=== PATIENT | female | born 1945 | race Caucasian/White ===

== ENCOUNTER 2024-10-30 15:01 | Emergency (ER) | payer MEDICARE, BC, SELFPAY ==
--- NOTE | 2024-10-30 16:16 | EDRN ---
Pt states she arrives for pain shooting down arms, burning and shooting and pain also goes from shoulder to shoulder across upper back. Pain started a month ago and saw PCP and went on prednisone for 12 days and other med. Pt states pain went away
then it came back, put her back on these meds and pain went away and came back even worse. Pain at this time is 10/10. Pt has been unable to sleep at night for about 5 nights. Pain gets worse when lies on her shoulders. Pain goes from shoulder to
shoulder, first one is worse then the other.
[2024-10-30 16:19] VITALS: BMI 28.8
--- NOTE | 2024-10-30 16:26 | EDRN ---
Pt has decreased ROM of bilateral arms and has difficulty w/ great increase in pain w/ pulling up her pants, pushing arms back and putting on a coat, short or jacket.
--- NOTE | 2024-10-30 16:49 | EDRN ---
Dr. Perez in room w/pt at this time.
[2024-10-30] MEDS: TORADOL 15 MG IV ×2 (17:21→19:36)
[2024-10-30 17:22] VITALS: BP 163/74
[2024-10-30 17:31] LABS: % Basophils 0.5 % (0-2); % Eosinophils 5.1 % (0-6); % Immature Granulocytes 0.5 % (0-0.5); % Lymphocytes 19.1 % (20.5-51.1); % Monocytes 7.4 % (1.7-9.3); % Neutrophils 67.4 % (42.2-75.2); Absolute Eosinophils 0.4 10^3/uL (0-0.7); Absolute Lymphocytes 1.6 10^3/uL (1.2-3.4); Absolute Monocytes 0.6 10^3/uL (0.1-0.6); Absolute Neutrophils 5.6 10^3/uL (1.4-6.5); Hematocrit 39.9 % (37.0-47.0); Hemoglobin 12.9 g/dL (12.0-16.0); Mean Corp Hgb Conc. 32.3 g/dL (33.0-37.0); Mean Corpuscular Hgb 28.7 pg (27.0-31.0); Mean Corpuscular Volume 88.7 fL (81.0-99.0); Mean Platelet Volume 9.3 fL (7.4-10.4); Nucleated Red Blood Cells % 0 %; Platelet Count 282 10^3/uL (130-400); Red Cell Dist. Width 14.5 % (11.5-14.5); White Blood Cell Count 8.4 10^3/uL (4.8-10.8)
--- NOTE | 2024-10-30 17:47 | ED.GENMED ---
History of Present Illness
General
Chief Complaint: Extremity Pain (non-traumatic)
Source: patient and family (2 daughters at bedside)
Exam Limitations: none
Time Seen by Provider: 10/30/24 16:45
Nursing documentation reviewed up to this point in time: agreed with
History of Present Illness
History of Present Illness:
This is a quite villatoro 79-year-old woman who has history of hypertension, hyperlipidemia, cervical and lumbar DJD, remote history of gastric ulcer. She complains of 1 month history of bilateral upper arm/bilateral shoulder pain without insightful
injury, no falls. She admits that upper arm and shoulder pain is much worse with movement of her shoulders, she is unable to lift her arms completely overhead and unable to reach behind her back. She does note mild neck pain that has been chronic
and unchanged and states she underwent an MRI of her cervical spine this past summer that showed some DJD. She did not require interventions. She denies increase in her neck pain, she denies weakness or numbness. No headache.
She denies insightful injury but she does admit to staying quite active and was quite busy over the holidays, baking, doing various other activities.
She saw her PCP 1 month ago and was placed on a Medrol Dosepak with marked improvement/resolution of pain until Medrol Dosepak completed then bilateral shoulder pain returns. She was placed on another lengthier taper of prednisone which completed a
little over 1 week ago. She admits that pain improved with the Medrol but has since returned and is now worsening. She has not had a fever nor chills, no rash. No history of similar episodes of pain. She denies back pain nor hip pain. She does
note occasional aching of pain across her upper shoulders. More so with movement.
Past History
Past History
ED Past Medical History: GERD (History of bleeding peptic ulcer), HTN, Hypercholesterolemia and Other (Cervical and lumbar DJD/lumbar spinal stenosis); Negative CAD
ED Past Surgical History: Cardiac (Cardiac catheterization 2016), Cholecystectomy, Gynecological (D and C) and Orthopedic (Lumbar laminectomy July 2018)
Social History
Tobacco: Non-smoker
Alcohol: None
Drug: None
Personal:
Living: with family
Employment: Retired
Family History
Family History: Other (Noncontributory)
Phy Exam
Physical Exam
Physical Exam:
GENERAL: 79-year-old woman appears somewhat younger than stated age, bright and alert, pleasant, appears in no acute distress. 2 daughters accompanying.
EYE: anicteric
NECK: Supple, nontender, Full range of motion without difficulty nor pain. no meningismus, no significant adenopathy.
ENT: oral mucosa is moist. No rhinorrhea.
CARDIAC: Regular rate and rhythm. no murmur.
LUNGS: Clear breath sounds bilaterally, no acute respiratory distress, no wheezes/rales/rhonchi
ABDOMEN: Soft, nondistended, without focal tenderness
NEUROLOGICAL: Alert and oriented x3, no focal neuro deficits. Gait is steady.
SKIN: Warm and dry, normal color, skin intact. No rash.
MUSCULOSKELETAL: No C/C/E. peripheral pulses are full and equal b/l. Mild tenderness palpation about bilateral shoulders without soft tissue swelling nor crepitus. Mild tenderness proximal humerus bilaterally. There is mildly restricted range of
motion bilateral shoulders related to pain.
PSYCH: Normal and appropriate interaction.
Course
Orders/Labs/Results
Orders:
Orders
10/30/24 16:58
Electrocardiogram (*1) Urgent
Reason for Study: Chest Pain
EKG- Treatment ONCE
Shoulder, Left, Trauma CR [CR Shoulder, Trauma - Left] Urgent
Comment:
Reason For Exam: b/l shoulder pain x 1 month
Shoulder, Right, Trauma [CR Shoulder, Trauma - Right] Urgent
Comment:
Reason For Exam: b/l shoulder pain x 1 month
10/30/24 17:00
Ketorolac [Toradol] 15 mg IV NOW STA
10/30/24 17:17
CRP [C-Reactive Protein] Urgent
Complete Blood Count/With Diff Urgent
Comprehensive Metabolic Panel Urgent
Lyme Progressive Urgent
Rheumatoid Factor [Rheumatoid Agglutinin] Urgent
Sed Rate [Erythrocyte Sed Rate] Urgent
10/30/24 19:26
Dexamethasone Sod Phosphate [Decadron] 10 mg IV NOW STA
Ketorolac [Toradol] 15 mg IV NOW STA
Abnormal Lab Results
10/30/24
17:17
MCHC 32.3 L g/dL
(33.0-37.0)
Lymphocytes % 19.1 L %
(20.5-51.1)
ESR 44 H mm/hour
(0-20)
Creatinine 0.5 L mg/dL
(0.6-1.0)
C-Reactive Protein 35.70 H mg/L
(0.0-10.00)
10/30/24 17:17
10/30/24 17:17
Vital Signs
Initial and Last Documented VS:
Initial Vital Signs
Temp Pulse Resp Pulse Ox
98.3 F 77 18 95
10/30/24 15:03 10/30/24 15:03 10/30/24 15:03 10/30/24 15:03
Last Documented Vital Signs
Temp Pulse Resp BP Pulse Ox
98.0 F 74 20 138/65 94
10/30/24 19:09 10/30/24 19:09 10/30/24 19:09 10/30/24 19:09 10/30/24 19:09
MDM/Problems Addressed
Differential Diagnosis Includes:
Concern for polymyalgia rheumatica, DJD bilateral shoulders, concern for other inflammatory arthropathy, other consideration is cervical radiculopathy. Less likely ACS.
Will check EKG, will check labs including inflammatory markers, Lyme titer, rheumatoid factor.
Will check x-ray bilateral shoulders.
Will trial an IV dose of Toradol.
*Radiology
Radiology exam reviewed: preliminary read by ED provider (Bilateral shoulder x-rays unremarkable showing mild osteopenia but otherwise unremarkable.)
*Pulse Oximetry
Patient hypoxic: no
*EKG
Interpreted by ED Provider?: Yes
Interpretation: normal
Comparison EKG: no comparison EKG present
Rate: normal
Rhythm: sinus
Bastian: normal axis
Interval: first degree heart block
QRS Pattern: normal QRS
Ischemia: no ischemia
*Critical Care Note
Total Time (30-74mins, 75-104mins- exclusive of procedures): Not Applicable
Update Note
Update Note:
19:25
Patient reports only minimal relief after small IV dose of Toradol. She continues with primarily bilateral upper arm pain more so right than left, worse with movement of her shoulders, worse with palpation of her lateral shoulders.
Labs are remarkable for mildly elevated sed rate of 44, elevated CRP of 35.7. All other labs within normal limits. Lyme titer, rheumatoid factor pending.
Bilateral shoulder x-rays are unremarkable. Mild osteopenia but otherwise unremarkable.
I suspect inflammatory arthropathy such as polymyalgia rheumatica. As patient had relief with oral steroids will prescribe a lengthier taper of prednisone and recommend she follow-up with classifier tender for further evaluation.
Will add Protonix for GI protection. Remote history of bleeding gastric ulcer.
Will give an additional small dose of Toradol now as well as an IV dose of Decadron.
ED Attending Note
-
Portions of this chart may have been created with voice recognition software.� Occasional wrong word or��sound alike� substitutions may have occurred due to the inherent limitations of voice recognition software.
Discharge Plan
Departure
Patient Disposition: Home (Routine Discharge)
Date of Disposition: 10/30/24
Time of Disposition: 19:29
Patient with high blood pressure during this ER visit?: No
Condition: Good
Discharge Problem:
Shoulder arthralgia, Concern for polymyalgia rheumatica
Instructions: Shoulder Tendinopathy (DC), Rotator Cuff Tendinitis Stretching Exercises
Prescriptions:
New
prednisone 10 mg Tablet
See Rx Instructions .ROUTE .COMPLEX Qty: 45 0RF
Rx Instructions:
Take By Mouth:
50 mg daily x3 days, 40 mg daily x3 days,
30 mg daily x3 days, 20 mg daily x3 days,
10 mg daily x3 days
pantoprazole [Protonix] 40 mg tablet,delayed release (DR/EC)
40 mg PO DAILY Qty: 30 0RF
No Action
amlodipine 10 MG tablet
10 mg PO HS
metoprolol tartrate 50 MG tablet
50 mg PO DAILY
gabapentin 300 MG capsule
300 mg PO HS
rosuvastatin 5 MG tablet
2.5 mg PO DAILY
Systane Balance 10 ML drops
1 drp BOTH EYES TID
Losartan
100 mg PO HS
tramadol 50 MG tablet
50 mg PO Q6HPRN PRN (Reason: pain) Qty: 40 0RF
lorazepam 1 MG tablet
1 mg PO TIDPRN PRN (Reason: pain/spasms) Qty: 40 0RF
aspirin [Aspir-81] 81 mg Tablet,Delayed Release (Dr/Ec)
81 mg PO DAILY
Referrals:
Luis Shah DO [Consulting Staff] - Call in 1-3 days for appt
UNKNOWN - PT NOT,INTERVIEWE [Unknown Provider] -
Interventions
Interventions:
*Risk Screen - Suicide Last Done: 10/30/24 16:21
*General Assessment Last Done: 10/30/24 16:20
*Neglect/Abuse Screening Last Done: 10/30/24 16:21
ED- Fall Risk Assessment Last Done: 10/30/24 16:21
*ED COVID-19 Vaccine History Last Done: 10/30/24 16:20
ED-Musculoskeletal Assessment Last Done: 10/30/24 16:24
ED-Peripheral Vascular Assessment Last Done: 10/30/24 16:24
ED-Skin Assessment Last Done: 10/30/24 16:24
Discharge Date and Time
Print Language: TURKISH
[2024-10-30 17:51] LABS: Erythrocyte Sed Rate 44 mm/hour (0-20)
[2024-10-30 17:54] LABS: ALT (SGPT) 16 U/L (0-35); AST (SGOT) 25 U/L (14-36); Albumin 4.5 g/dl (3.5-5.0); Alkaline Phosphatase 79 U/L (38-126); Blood Urea Nitrogen 13 mg/dl (7-17); Calcium 8.9 mg/dl (8.4-10.2); Carbon Dioxide 26 mmol/L (22-30); Chloride 102 mmol/L (98-107); Estimated Creatinine Clearance 64 ml/min; Glucose 72 mg/dl (70-99); Potassium 4.3 mmol/L (3.5-5.1); Sodium 139 mmol/L (135-145); Total Bilirubin 0.6 mg/dl (0.2-1.3); Total Protein 7.2 g/dl (6.3-8.2); eGFR > 60.00
[2024-10-30 18:20] VITALS: BP 114/76
[2024-10-30 19:09] VITALS: BP 138/65
[2024-10-30] MEDS: DECADRON 10 MG IV (19:37)
[2024-10-31 13:44] LABS: Lyme Antibody Screen, EIA Negative (Negative); Rheumatoid Agglutinin Positive (<10 IU)
[2024-10-31 15:08] LABS: Rheumatoid Agg. Semi-quant 256 IU
== END 2024-10-30 19:55 | disposition home or self-care (01) ==
LOC: EMR 15:01
PROVIDERS: EMERGENCY PHYSICIAN Emergency Medicine; FAMILY PHYSICIAN Internal Medicine
DX: M25.519 Pain in unspecified shoulder (principal); I10 Essential (primary) hypertension; E78.00 Pure hypercholesterolemia, unspecified; K21.9 Gastro-esophageal reflux disease without esophagitis; Z87.11 Personal history of peptic ulcer disease; Z90.49 Acquired absence of other specified parts of digestive tract
CPT/HCPCS: 99283; 96374; 96375; 96376; 73030; 80053; 85025; 85652; 86140; 86430; 86431; 86618; 93005

== ENCOUNTER 2024-11-01 21:16 | Emergency (ER) | payer MEDICARE, BC, SELFPAY ==
[2024-11-01 21:16] VITALS: BP 155/83
[2024-11-01 21:18] VITALS: BP 179/79
[2024-11-01 21:39] LABS: % Basophils 0.1 % (0-2); % Immature Granulocytes 0.4 % (0-0.5); % Lymphocytes 10.6 % (20.5-51.1); % Neutrophils 84.9 % (42.2-75.2); Absolute Immature Granulocytes 0.1 10^3/uL (0-0.05); Absolute Lymphocytes 1.2 10^3/uL (1.2-3.4); Absolute Monocytes 0.5 10^3/uL (0.1-0.6); Absolute Neutrophils 9.5 10^3/uL (1.4-6.5); Hematocrit 37.1 % (37.0-47.0); Hemoglobin 11.9 g/dL (12.0-16.0); Mean Corp Hgb Conc. 32.1 g/dL (33.0-37.0); Mean Corpuscular Hgb 29.2 pg (27.0-31.0); Mean Corpuscular Volume 91.2 fL (81.0-99.0); Mean Platelet Volume 9.4 fL (7.4-10.4); Nucleated Red Blood Cells % 0 %; Platelet Count 383 10^3/uL (130-400); Red Blood Cell Count 4.07 10^6/uL (4.20-5.40); Red Cell Dist. Width 14.6 % (11.5-14.5); White Blood Cell Count 11.2 10^3/uL (4.8-10.8)
[2024-11-01 21:56] LABS: ALT (SGPT) 17 U/L (0-35); AST (SGOT) 21 U/L (14-36); Albumin 4.4 g/dl (3.5-5.0); Alkaline Phosphatase 75 U/L (38-126); Blood Urea Nitrogen 25 mg/dl (7-17); Calcium 9.2 mg/dl (8.4-10.2); Carbon Dioxide 28 mmol/L (22-30); Chloride 101 mmol/L (98-107); Glucose 131 mg/dl (70-99); Potassium 3.9 mmol/L (3.5-5.1); Sodium 139 mmol/L (135-145); Total Bilirubin 0.5 mg/dl (0.2-1.3); eGFR > 60.00
[2024-11-01 22:01] VITALS: BP 141/67; BMI 32.7
[2024-11-01 23:00] VITALS: BP 145/70
--- NOTE | 2024-11-01 23:02 | ED.GENMED ---
History of Present Illness
General
Chief Complaint: Nose Bleed
Source: patient, family and ambulance crew
Time Seen by Provider: 11/01/24 21:36
History of Present Illness
History of Present Illness:
Pleasant 79-year-old female who presents with left nostril nosebleed that began around 730 this evening. Denies trauma. Reports no other complaints. She states that this is spontaneous and is not on any blood thinners. She tried putting direct
pressure on it. She called 911. Ambulance arrived and put a clamp on her nose. That stopped the bleeding on arrival bleeding had stopped completely.
Past History
Past History
ED Past Medical History: GERD (History of bleeding peptic ulcer), HTN, Hypercholesterolemia and Other (Cervical and lumbar DJD/lumbar spinal stenosis); Negative CAD
ED Past Surgical History: Cardiac (Cardiac catheterization 2016), Cholecystectomy, Gynecological (D and C) and Orthopedic (Lumbar laminectomy July 2018)
Social History
Tobacco: Non-smoker
Alcohol: None
Drug: None
Personal:
Living: with family
Employment: Retired
Family History
Family History: Other (Noncontributory)
Review of Systems
Review of Systems
Allergies reviewed?: Yes
All Other Systems: ROS reviewed and negative except as documented in HPI and ROS
Constitutional: Reports no symptoms
EENT: Reports other (Epistaxis)
Respiratory: Reports no symptoms
Cardiac: Reports no symptoms
ABD/GI: Reports no symptoms
: Reports no symptoms
Musculoskeletal: Reports no symptoms
Skin: Reports no symptoms
Neurological: Reports no symptoms
Endocrine: Reports no symptoms
Hematologic/Lymphatic: Reports no symptoms
Psychiatric: Reports no symptoms
Phy Exam
General Physical Exam
General Presentation: well appearing
General age: appears stated age
General Skin: warm
General Habitus: normal
General Mental: alert and anxious
ENT Exam
ENT Exam: swallowing well
Additional ENT: Left nostril has clot burden. No spontaneous bleeding after several hours
Cardiovascular Exam
Cardiovascular Exam: regular rate/rhythm and no edema
Pulmonary Exam
Pulmonary Exam: lungs clear, no respiratory distress and no cough
Neurological Exam
Neurological Exam: alert and oriented x3
Musculoskeletal Exam
Musculoskeletal Exam: full ROM
Skin Exam
Skin Exam: normal color and warm/dry
Psychiatric Exam
Psychiatric Exam: normal mood/affect
Course
Orders/Labs/Results
Orders:
Orders
11/01/24 21:31
Complete Blood Count/With Diff Urgent
Comprehensive Metabolic Panel Urgent
11/01/24 21:58
Add On- LAB Urgent
Tests Added?: CBC
Abnormal Lab Results
11/01/24
21:31
WBC 11.2 H 10^3/uL
(4.8-10.8)
RBC 4.07 L 10^6/uL
(4.20-5.40)
Hgb 11.9 L g/dL
(12.0-16.0)
MCHC 32.1 L g/dL
(33.0-37.0)
RDW 14.6 H %
(11.5-14.5)
Abs Immat Gran (auto) 0.1 H 10^3/uL
(0-0.05)
Absolute Neuts (auto) 9.5 H 10^3/uL
(1.4-6.5)
Neutrophils % 84.9 H %
(42.2-75.2)
Lymphocytes % 10.6 L %
(20.5-51.1)
BUN 25 H mg/dl
(7-17)
Glucose 131 H mg/dl
(70-99)
11/01/24 21:31
11/01/24 21:31
Vital Signs
Initial and Last Documented VS:
Initial Vital Signs
BP
155/83
11/01/24 21:16
Last Documented Vital Signs
Pulse Resp BP Pulse Ox
84 18 145/70 97
11/01/24 21:18 11/01/24 21:18 11/01/24 23:00 11/01/24 23:15
*Critical Care Note
Total Time (30-74mins, 75-104mins- exclusive of procedures): Not Applicable
Update Note
Update Note:
Patient observed in the emergency department for several hours. No spontaneous bleeding despite the clamp being removed. There is clot burden in the left nostril. At this point we will leave it as the bleeding has stopped. It after discussion
with the patient we will not evacuate the clot. Patient does understand that the bleeding could return. We did discuss return to ER instructions as well as instructions for stopping the nosebleed. She has no
ED Attending Note
-
Portions of this chart may have been created with voice recognition software.� Occasional wrong word or��sound alike� substitutions may have occurred due to the inherent limitations of voice recognition software.
Discharge Plan
Departure
Patient Disposition: Home (Routine Discharge)
Date of Disposition: 11/01/24
Time of Disposition: 23:06
Patient with high blood pressure during this ER visit?: Yes
Discharge Problem:
Acute anterior epistaxis
Instructions: Nosebleeds (DC), BLOOD PRESSURE
Prescriptions:
No Action
amlodipine 10 MG tablet
10 mg PO HS
metoprolol tartrate 50 MG tablet
50 mg PO DAILY
gabapentin 300 MG capsule
300 mg PO HS
rosuvastatin 5 MG tablet
2.5 mg PO DAILY
Systane Balance 10 ML drops
1 drp BOTH EYES TID
Losartan
100 mg PO HS
tramadol 50 MG tablet
50 mg PO Q6HPRN PRN (Reason: pain) Qty: 40 0RF
lorazepam 1 MG tablet
1 mg PO TIDPRN PRN (Reason: pain/spasms) Qty: 40 0RF
aspirin [Aspir-81] 81 mg Tablet,Delayed Release (Dr/Ec)
81 mg PO DAILY
prednisone 10 mg Tablet
See Rx Instructions .ROUTE .COMPLEX Qty: 45 0RF
Rx Instructions:
Take By Mouth:
50 mg daily x3 days, 40 mg daily x3 days,
30 mg daily x3 days, 20 mg daily x3 days,
10 mg daily x3 days
pantoprazole [Protonix] 40 mg tablet,delayed release (DR/EC)
40 mg PO DAILY Qty: 30 0RF
Referrals:
Chetan Unger MD [Active] -
Xander Shahid MD [Family Provider] -
Activity Restrictions/Additional Instructions:
If your nose starts to bleed again, please apply direct pressure using the clamp provided please follow-up with your ear nose and throat doctor as discussed. If you cannot get an appointment with your ENT, our on-call ENT physician is listed
It was a pleasure meeting you and taking part in your care. We hope for your continued healing and wellness.
Please read discharge instructions in their entirety. However, they are for general education and may not describe your exact diagnosis at discharge. Information on your ER visit and medical conditions were discussed with you along with appropriate
follow up information...
If indicated, please take your medications as instructed and indicated on discharge paperwork.
Please schedule a follow up appointment as directed. Call to schedule an appointment
Please return to the emergency department with ANY change in, persisting, or worsening of symptoms. If any of your symptoms do not improve, or persist, or become more severe within 6-12 hours, please return to the emergency department for further
care.
Please return to the emergency department if you develop a headache, neck pain/stiffness, fever greater than 100.4F, chest pain, shortness of breath, persistent nausea, vomiting, slurred speech, difficulty walking, numbness/tingling, weakness, signs
of infection or any other symptoms that are worrisome to you.
If you have any questions or concerns please do not hesitate to call the Hospital at or E-mail me directly at [email or web address]
Interventions
Interventions:
*Risk Screen - Suicide Last Done: 11/01/24 21:18
*General Assessment Last Done: 11/01/24 21:18
*Neglect/Abuse Screening Last Done: 11/01/24 21:18
ED- Fall Risk Assessment Last Done: 11/01/24 22:02
*ED COVID-19 Vaccine History Last Done: 11/01/24 22:01
*Nursing Disposition Last Done: 11/01/24 23:35
ED-EENT Assessment Last Done: 11/01/24 22:02
Discharge Date and Time
Discharge Date/Time: 11/01/24 23:38
Print Language: [email or web address]
== END 2024-11-01 23:38 | disposition home or self-care (01) ==
LOC: EMR 21:16
PROVIDERS: Student in an Organized Health Care Education/Training Program; EMERGENCY PHYSICIAN Student in an Organized Health Care Education/Training Program; FAMILY PHYSICIAN Internal Medicine
DX: R04.0 Epistaxis (principal); I10 Essential (primary) hypertension
CPT/HCPCS: 99283; 80053; 85025